=== PATIENT | male | born 1940 | race Caucasian/White ===

== ENCOUNTER 2019-02-22 06:27 | Day surgery (SDC) | payer MEDICARE ==
[2019-02-21 15:00] VITALS: BMI 22.8
[~2019-02-22 06:27] MED LIST: Fluorouracil 100 MG, Enoxaparin Sodium 25 MG, EPINEPHrine 0.3 MG in Ophthalmic Irrigati... IRR SCH
[2019-02-22] MEDS ORDERED: Cyclopentolate 1% Opth Drop 2 ML BOT ONE (07:08)
[2019-02-22] MEDS ORDERED: Phenylephrine 2.5% Ophth Soln 5 ML BOT ONE (07:08)
[2019-02-22] MEDS ORDERED: Lidocaine 2% PF 5 ML VIAL ONE (07:17)
[2019-02-22] MEDS ORDERED: Midazolam HCl 2 mg/2 ml Vial ONE (07:17)
[2019-02-22] MEDS ORDERED: PROPOFOL 20 ML ONE (07:17)
[2019-02-22] MEDS ORDERED: Fentanyl 100 MCG/2 ML VIAL ONE (07:17)
--- NOTE | 2019-02-22 10:05 | OP ---
DATE OF PROCEDURE: 02/22/2019 PREOPERATIVE DIAGNOSIS: Rhegmatogenous retinal detachment, right eye. POSTOPERATIVE DIAGNOSIS: Rhegmatogenous retinal detachment, right eye. PROCEDURE PERFORMED: Pars plana vitrectomy and retinal detachment repair, right eye. ANESTHESIA: Local with monitored anesthesia care. PROCEDURE IN DETAIL: The patient was identified in the preoperative holding area. Appropriate informed consent for the planned surgical procedure on the right eye had been obtained. The patient was transported to the operative suite, where appropriate cardiopulmonary monitoring was established. Local anesthesia was obtained using retrobulbar modified Van Lint lid block using 50:50 mixture of 4% lidocaine with 0.75% bupivacaine. The patient was prepped and draped in the usual sterile manner for ophthalmic surgery on the right eye. Lid speculum was placed in the right eye. A 25-gauge trocar was placed in conjunctiva and sclera superotemporally, inferotemporally, and supranasally. Infusion line was placed inferotemporally. Light pipe vitreous cutter was inserted into the eye. Core vitrectomy was performed. A tear was noted at the 10 o'clock position. A schisis cavity was noted centered around the 8 o'clock position. Vitreous base was trimmed back 360 degrees using wide-field viewing system. Special attention was turned to the schisis cavity. A 360 laser was placed using Endolaser delivery device also surrounding the inferior temporal schisis cavity. 15% perfluoropropane gas was infused into the eye. Trocars were removed. Eye was noted to retain pressure well. Superior sclerotomies were suture closed with 6-0 plain gut suture. Kenalog and subconjunctival Ancef were placed. Antibiotic ointment was placed. The eye was patched and shielded. The patient was taken to the postoperative recovery unit in good condition, having suffered no immediate perioperative complications. The patient was instructed to keep the patch and shield on, avoid lifting or bending, positioning right side down. Followup appointment with Dr. Nicholson. Job ID: [id number]
== END 2019-02-22 10:15 | disposition home or self-care (01) ==
LOC: SDC 06:27
PROVIDERS: ATTEND Ophthalmology Retina Specialist
PROC: 08T43ZZ Resection of Right Vitreous, Percutaneous Approach (ICD-10-PCS; principal; 2019-02-22)
PROC: 08U03JZ Supplement of Right Eye with Synthetic Substitute, Percutaneous Approach (ICD-10-PCS; 2019-02-22)
DX: H33.001 Unspecified retinal detachment with retinal break, right eye (principal)
CPT/HCPCS: 67025; J0171; J1650; J2001; J2250; J2704; J3010; J9190

== ENCOUNTER 2019-05-17 07:15 | Day surgery (SDC) | payer MEDICARE ==
[2019-05-16 13:28] VITALS: BMI 22.3
[2019-05-17] MEDS ORDERED: EPINEPHrine 0.3 MG in Ophthalmic Irrigation Solution 500 ML IVP SCH (07:30)
[2019-05-17] MEDS ORDERED: Cyclopentolate 1% Opth Drop 2 ML BOT ONE (07:48)
[2019-05-17] MEDS ORDERED: Phenylephrine 2.5% Ophth Soln 5 ML BOT ONE (07:48)
[2019-05-17] MEDS ORDERED: Fentanyl 100 MCG/2 ML VIAL ONE (08:30)
--- NOTE | 2019-05-17 12:02 | OP ---
DATE OF PROCEDURE: 05/17/2019 PRINCIPAL PREOPERATIVE DIAGNOSIS: Epiretinal membrane, right eye. POSTOPERATIVE DIAGNOSIS: Epiretinal membrane, right eye. NAME OF PROCEDURE PERFORMED: 1. 25-gauge pars plana vitrectomy, right eye. 2. Epiretinal membrane/internal limiting membrane removal, right eye. ESTIMATED BLOOD LOSS: None. SPECIMENS REMOVED: None. COMPLICATIONS: None. ANESTHESIA: MAC with retrobulbar block. SUMMARY OF THE OPERATION: The patient was identified in the preoperative holding area. The correct eye being the right eye was marked for surgery. He was taken to the operating room, where MAC anesthesia was induced. A retrobulbar block was administered to the right eye. The block consisted of 1:1 ratio of 4% lidocaine and 0.75% Marcaine. A total of 5 mL was administered. The right eye was then prepped and draped in the usual sterile ophthalmic fashion for surgery. A wire lid speculum was placed. A standard 25-gauge pars plana vitrectomy platform was fashioned with trocars placed approximately 3.5 mm from the limbus. The infusion was noted to be within the vitreous cavity prior to being turned on to infusion pressure of 30 mmHg. The light pipe Micro vitrector introduced in the eye under visualization of BIOM viewing system. A careful peripheral shave vitrectomy was performed in this previously vitrectomized eye. Following vitrectomy, ICG dye was used to stain the internal limiting membrane. Using the Jeremy ILM forceps, the internal limiting membrane/epiretinal membrane complex was gently removed in a circumferential fashion about the fovea. The peel extended approximately 2 disk diameters in radius from the fovea. Following peeling, the Micro vitrector was reintroduced in the eye to remove any residual vitreous debris. A 360-degree scleral depressed exam of the periphery revealed adequate laser and no defects of the periphery. The cannulas were sequentially removed and all sclerotomies were sutured with 8- 0 Vicryl suture. Following suturing, all sclerotomies were noted to be watertight. The wire lid speculum was removed followed by application of TobraDex ophthalmic ointment and a light patch and shield. The patient tolerated the procedure well and was taken to outpatient recovery area in good condition. Job ID: [id number] [facility]
== END 2019-05-17 10:10 | disposition home or self-care (01) ==
LOC: SDC 07:15
PROVIDERS: ATTEND Ophthalmology Retina Specialist
PROC: 08T43ZZ Resection of Right Vitreous, Percutaneous Approach (ICD-10-PCS; principal; 2019-05-17)
PROC: 08NE3ZZ Release Right Retina, Percutaneous Approach (ICD-10-PCS; 2019-05-17)
DX: H35.371 Puckering of macula, right eye (principal); Z88.0 Allergy status to penicillin; Z88.2 Allergy status to sulfonamides; Z88.5 Allergy status to narcotic agent; Z88.8 Allergy status to other drugs, medicaments and biological substances
CPT/HCPCS: J0171; J3010